=== PATIENT | male | born 1960 | race Caucasian/White ===

== ENCOUNTER → 2018-02-12 11:53 | Outpatient (CLI) | payer OTHER, SELFPAY ==
--- NOTE | 2018-02-12 11:59 | DI.RAD.S_ITS ---
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 TECHNIQUE: 3 views of the knee were acquired. COMPARISON: None. FINDINGS: Bones: No fractures or dislocations. No suspicious bony lesions. There is minimal medial left knee joint degeneration. Soft tissues: No joint effusion. No suspicious soft tissue calcifications. IMPRESSION: Minimal medial left knee joint degeneration. Dictated by: Martell Dawkins M.D. on 02/12/2018 at 12:50 Approved by: Martell Dawkins M.D. on 02/12/2018 at 12:51
[2018-02-12 14:32] LABS: Alanine Aminotransferase 35 IU/L (21-72); Albumin 4.4 g/dL (3.5-5.0); Albumin Globulin Ratio 1.5 (1.0-2.8); Alkaline Phosphatase 64 U/L (38-126); Aspartate Aminotransferase 22 IU/L (17-59); BUN Creatinine Ratio 12.5 (6-22); Bilirubin Total 0.6 mg/dL (0.2-1.3); Blood Urea Nitrogen 10 mg/dL (9-20); Calcium 8.9 mg/dL (8.4-10.2); Carbon Dioxide 29 mmol/L (22-32); Chloride 100 mmol/L (98-107); Cholesterol 182 mg/dL (140-199); Estimated Glomerular Filt Rate > 60.0 mL/min (>60); Globulin 2.9 g/dL (1.7-4.1); Glucose 88 mg/dL (70-100); HDL Cholesterol 52 mg/dL (40-60); HEMOLYSIS < 15 (0-50); LDL Cholesterol Calculated 106 mg/dL (<100); Potassium 3.9 mmol/L (3.4-5.1); Sodium 141 mmol/L (137-145); Total Protein 7.3 g/dL (6.3-8.2); Triglycerides 120 mg/dL (35-150)
[2018-02-12 14:56] LABS: Prostate Specific Antigen Scrn 1.23 ng/mL (0.1-4.0)
== END ==
PROVIDERS: PCP Family Medicine; Visit Provider Family Medicine
DX: Z13.1 Encounter for screening for diabetes mellitus (principal); Z12.11 Encounter for screening for malignant neoplasm of colon; Z13.220 Encounter for screening for lipoid disorders; Z12.5 Encounter for screening for malignant neoplasm of prostate; M25.662 Stiffness of left knee, not elsewhere classified; M25.862 Other specified joint disorders, left knee
CPT/HCPCS: 36415; 73562; 80053; 80061; G0103

== ENCOUNTER → 2018-02-18 09:54 | Outpatient (CLI) | payer OTHER, SELFPAY ==
[2018-02-21 20:31] LABS: Fecal Immunochemical Test DETECTED
== END ==
PROVIDERS: PCP Family Medicine; Visit Provider Family Medicine
DX: Z12.11 Encounter for screening for malignant neoplasm of colon (principal)
CPT/HCPCS: 82274

== ENCOUNTER 2018-08-04 06:35 | Day surgery (SDC) | payer OTHER, SELFPAY ==
--- NOTE | 2018-08-04 | PATH_ITS ---
[facility] Accession Number: [id number] . 01 Material submitted: . PART A: COLON BIOPSY AT 20CM PART B: COLON BIOPSY AT 70CM PART C: BIOPSY ASCENDING COLON . 02 Diagnosis: A. Colon at 20 cm, Biopsy: Fragments of hyperplastic polyp. . B. Colon at 70 cm, Biopsy: Fragments of serrated polyp, favor sessile serrated adenoma. . C. Ascending Colon, Biopsy: Fragments of tubular adenoma. MRV/08/05/2018 . 02 Electronically signed: . Tomas Merrill MD, PhD, Pathologist NPI- [id number] . 01 Gross description: . Received three formalin-filled containers, each labeled with the patient's name: . A. In a container labeled colon at 20 cm, are multiple less than 0.1 cm to 0.5 cm portions of tissue, which are filtered, wrapped, and entirely submitted in cassette A. B. In a container labeled colon at 70 cm, are four less than 0.1 cm to 0.3 cm portions of tissue, entirely submitted in cassette B. C. In a container labeled ascending colon, are two 0.2-0.3 cm portions of tissue, entirely submitted in cassette C. ([id number]) /FRR . 02 Pathologist provided ICD-10: D12.2 . 02 CPT . 144804, 608701, [id number] Performed at: 01 [facility] [address] [id number] MD Sami Johnson MD Phone: [phone] Performed at: 02 [facility] [address] [place] [id number] MD Aaliyah Marks MD Phone: [phone]
[2018-08-04 07:25] VITALS: BP 129/94; PULSE 87; RESP 16; TEMP 36.8; O2SAT 96; BMI 29.5
[2018-08-04] MEDS: SODIUM CHLORIDE 0.9% 1,000 ML 200 ML IV (07:25)
--- NOTE | 2018-08-04 08:15 | PM.HP.1 ---
History of Present Illness Date Patient Seen: 08/04/18 Time Patient Seen: 08:15 Chief complaint: [id number] SCREENING COLONOSCOPY Narrative: The patient is a gentleman here for screening colonoscopy. This is his 1st exam. He had a positive fit test. No family history of colon cancer. Patient History Surgical History S/P carpal tunnel release (Acute) Family & Social History Family History: Reviewed 08/04/18 by Cortez Avendaño MD Social History: household members spouse,children Tobacco & Substance use: Smoking Status Never smoker alcohol intake current Meds Home Medications Medication Instructions Recorded Confirmed Type ibuprofen 200 mg capsule 200 mg PO Q4-6H PRN 02/04/18 08/04/18 History Allergies Allergy/AdvReac Type Severity Reaction Status Date / Time No Known Drug Allergies Allergy Verified 08/04/18 07:33 Review of Systems Review of Systems All systems reviewed & are unremarkable except as noted in HPI and below Exam Vital Signs (past 8 hours): - 08/04/18 07:25 Temperature 98.2 F Pulse Rate 87 Respiratory Rate 16 Blood Pressure 129/94 H Pulse Oximetry 96 Oxygen Delivery Method Room Air Narrative Exam Narrative: Operative gentleman no apparent distress. Eyes are nonicteric. Lungs are clear to auscultation no rales or rhonchi. Heart regular rate rhythm without murmur or gallop. Abdomen is soft nontender protuberant without masses. No hernias appreciated. Alert oriented x3. Assessment & Plan Plan: Assessment/Plan Narrative: Patient with a positive fit test by history for screening colonoscopy. I have discussed the procedure and the rationale with the patient including risks of bleeding, perforation which would necessitate a major operation, failure to find remove all lesions and the potential to tattoo. They appeared to understand and wished to proceed.
--- NOTE | 2018-08-04 08:17 | PM.PREOP ---
Pre-operative Note Interval Note Pre-op Check: Yes History & Physical exam performed today by Physician Changes: No ASA Class (for procedural sedation): I
[2018-08-04] MEDS: MIDAZOLAM 5 MG/5 ML VIAL IV (08:51)
[2018-08-04] MEDS: fentaNYL 250 MCG/5 ML INJ IV (08:53)
--- NOTE | 2018-08-04 09:05 | PM.OP.ENDO ---
Operative Date/Time/Diagnoses Date of procedure: 08/04/18 Time of procedure: 09:05 Pre-op diagnosis: Positive fit test. Post-op diagnosis: same (Multiple polyps. Diverticulosis principle leave the sigmoid colon) Procedure & Clinicians Study performed: Colonoscopy with cold biopsy and hot snare polypectomy Same procedure as scheduled: Yes Indications: Positive fit test Surgeon: Cortez Avendaño Procedure Notes SCOAP/Timeout: Performed Procedure in detail: The patient was placed in the left lateral decubitus position and underwent IV sedation directed by the surgeon consisting of fentanyl and Versed. Digital exam was unremarkable. His prostate is normal in size without masses.. The scope was inserted and advanced through the rectum into the sigmoid, descending, transverse, and ascending colon. Numerous diverticula were seen in the sigmoid colon and a few scattered elsewhere. There were also 2 small polyps removed, 1 at 20 cm and 1 at 70 cm. The cecum was reached identified by the ileocecal valve and the appendiceal opening. The scope was gradually brought out. Additional Polyps were found at the ascending colon, at 70 cm, and a larger 1 at 20 cm. The largest at 20 cm was snared and removed. The scope ultimately was retroflexed in the rectum. The appearance was normal except for a small hemorrhoid without ulceration. The scope was removed and the patient tolerated the procedure well Scope withdrawal time: 13 min Sedation minutes: 32 Findings: diverticulosis, polyp (Multiple. All under a cm.) and possible cancer Specimen(s): other (Polyps) Complications: none Recommendations: Colonscopy in 5 years Follow up: as needed Disposition: PACU
[2018-08-04 09:09] VITALS: BP 112/79; PULSE 71; RESP 15; TEMP 36.3; O2SAT 94
[2018-08-04 09:14] VITALS: BP 101/74; PULSE 62; RESP 14; O2SAT 93
[2018-08-04 09:19] VITALS: BP 121/81; PULSE 72; RESP 14; TEMP 36.5; O2SAT 94
[2018-08-04 09:35] VITALS: BP 119/90; PULSE 72; RESP 16; TEMP 36.6; O2SAT 94
== END 2018-08-04 09:43 | disposition home or self-care (01) ==
LOC: ENDO 06:35
PROVIDERS: PCP Family Medicine; Visit Provider Surgery
PROC: 0DJD8ZZ Inspection of Lower Intestinal Tract, Via Natural or Artificial Opening Endoscopic (ICD-10-PCS; CPT 45378; principal; 2018-08-04 07:45)
DX: D12.2 Benign neoplasm of ascending colon (principal); K57.30 Diverticulosis of large intestine without perforation or abscess without bleeding
CPT/HCPCS: 45385; 45380; 99152; 99153; J2250; J3010

== ENCOUNTER → 2018-10-16 09:18 | Outpatient (CLI) | payer OTHER, SELFPAY | PROVIDERS: PCP Family Medicine; Visit Provider Orthopaedic Surgery Foot and Ankle Surgery | DX: M23.92 Unspecified internal derangement of left knee (principal); M23.42 Loose body in knee, left knee | CPT/HCPCS: 93005 ==

== ENCOUNTER 2019-08-17 14:44 | Day surgery (SDC) | payer OTHER, SELFPAY ==
[2019-08-13 08:13] VITALS: BMI 32.5
[2019-08-17] VITALS (8 sets, daily range): BP systolic 121–146; BP diastolic 78–93; PULSE 52–63; RESP 14–18; TEMP 36.1–36.4; O2SAT 91–97; BMI 32.5
[2019-08-17] MEDS: LACTATED RINGERS 1,000 ML 100 ML IV (15:38)
--- NOTE | 2019-08-17 17:07 | PM.PREOP ---
Pre-operative Note Interval Note History & Physical reviewed/Exam performed by Physician: Yes Changes to H&P: No
[2019-08-17] MEDS: CEFAZOLIN 2 GM/100 ML FROZ.PIGGY IV (17:12)
--- NOTE | 2019-08-17 17:26 | SUR.OPER ---
Supine on padded OR bed, head on pillow, arms secured on padded arm boards at <90 degrees abduction, legs uncrossed, safety belt at thigh, tape over blanket over lower legs.
[2019-08-17] MEDS: BUPIVACAINE 0.5% (PF) VIAL 30 ML INJ (17:34)
[2019-08-17] MEDS: ONDANSETRON 4 MG/2 ML INJ IV (18:17)
[2019-08-17] MEDS: fentaNYL 100 MCG/2 ML INJ IV (18:28)
[2019-08-17] MEDS: HYDROCODONE/ACET 5/325 TABLET 1 TAB PO (18:33)
--- NOTE | 2019-08-17 18:33 | PM.OP.1 ---
Operative Date/Time/Diagnoses Date of procedure: 08/17/19 Time of procedure: 18:09 Pre-op diagnosis: Umbilical hernia reducible Post-op diagnosis: same Procedure & Clinicians Procedure: Repair with underlay of mesh placed in the preperitoneal space Same procedure as scheduled: Yes Indications: Symptomatic hernia with attenuated skin over it Surgeon: Cortez Avendaño Click Yes if Unassisted: Yes Anesthesia Type: General Operative Notes Findings: Small defect containing preperitoneal fat Closure Type: primary Specimen(s): none sent Prosthetic devices, grafts, tissues, transplants, or devices: 1.7 in diameter circular Atrium mesh Estimated Blood Loss (mL): 10 Blood products transfused: none Procedure in detail: The patient is placed supine on the operating table underwent general LMA anesthesia. He was prepped and draped in the usual fashion a curvilinear incision was made in the infraumbilical fold and carried through the subcu fat to the level the fascia. The fascial edge was cleared of tissue and the contents of the hernia which was preperitoneal fat reduced. The fascial edge was cleared of tissue and I dissected preperitoneal fat off the abdominal wall underneath the fascial defect. This allowed me to place a 1.7 in diameter mesh the fascia was closed with [id number] 1. Tycron I incorporated the tails of the mesh into the closure. The skin was quite attenuated and violaceous and I excise that segment. The subcu was closed with 3 0 Vicryl. The skin was closed running 4 0 Vicryl subcuticular stitch and Steri-Strips. Dressing was applied the patient was awakened extubated taken recovery room good condition Complications: none Post-operative Condition: stable Disposition: PACU
== END 2019-08-17 19:12 | disposition home or self-care (01) ==
PROVIDERS: PCP Family Medicine; Visit Provider Specialist
PROC: (CPT 49585; principal; 2019-08-17 15:45)
DX: K42.9 Umbilical hernia without obstruction or gangrene (principal)
CPT/HCPCS: 49585; C1781; J0690; J1100; J1885; J2250; J2405; J2704; J3010

== ENCOUNTER → 2020-11-23 14:59 | Outpatient (CLI) | payer OTHER, SELFPAY ==
[2020-11-23] MEDS: COVID-19 VACC #1, MRNA(MOD) 100 MCG/0.5 ML VIAL IM (15:16)
== END ==
PROVIDERS: PCP Family Medicine; Visit Provider Internal Medicine
DX: Z23 Encounter for immunization (principal)
CPT/HCPCS: 0011A; 91301

== ENCOUNTER → 2020-12-21 14:34 | Outpatient (CLI) | payer OTHER, SELFPAY ==
[2020-12-21] MEDS: COVID-19 VACC #2, MRNA(MOD) 100 MCG/0.5 ML VIAL IM (14:41)
== END ==
PROVIDERS: PCP Family Medicine; Visit Provider Internal Medicine
DX: Z23 Encounter for immunization (principal)
CPT/HCPCS: 0012A; 91301

== ENCOUNTER → 2022-01-30 11:01 | Outpatient (CLI) | payer OTHER, SELFPAY ==
[2022-01-30 11:29] LABS: Add Manual Diff / Slide Review NO; Basophils Absolute Auto 0 /uL (0-100); Eosinophils Absolute Auto 100 /uL (0-450); Eosinophils Percent Auto 2.8 % (2-4); Hematocrit 41.3 % (41-53); Hemoglobin 14.2 g/dL (13.5-17.5); Lymphocytes Absolute Auto 1500 /uL (1100-4500); Lymphocytes Percent Auto 31.1 % (25-40); Mean Corpuscular HGB Conc 34.3 % (30-36); Mean Corpuscular Hemoglobin 32.7 PG (26-34); Mean Corpuscular Volume 95.2 fL (80-100); Monocytes Absolute Auto 400 /uL (0-900); Monocytes Percent Auto 7.3 % (3-14); Neutrophils Absolute Auto 2900 /uL (1500-7000); Neutrophils Percent Auto 57.8 % (50-75); Platelet Count 217 X10^3/uL (150-400); Red Blood Cell Count 4.34 X10^6/uL (4.5-5.9)
[2022-01-30 11:47] LABS: Alanine Aminotransferase 27 IU/L (<50); Albumin 4.7 g/dL (3.5-5.0); Albumin Globulin Ratio 1.8 (1.0-2.8); Alkaline Phosphatase 73 U/L (38-126); Aspartate Aminotransferase 29 IU/L (17-59); BUN Creatinine Ratio 15.6 (6-22); Bilirubin Total 0.5 mg/dL (0.2-1.3); Blood Urea Nitrogen 14 mg/dL (9-20); Calcium 9.1 mg/dL (8.4-10.2); Carbon Dioxide 30 mmol/L (22-32); Chloride 102 mmol/L (98-107); Cholesterol 227 mg/dL (140-199); Estimated Glomerular Filt Rate > 60 mL/min (>60); Globulin 2.6 g/dL (1.7-4.1); Glucose 108 mg/dL (80-110); HDL Cholesterol 81 mg/dL (40-60); HEMOLYSIS < 15 (0-50); LDL Cholesterol Calculated 126 mg/dL (<100); Potassium 5.1 mmol/L (3.4-5.1); Sodium 141 mmol/L (137-145); Total Protein 7.3 g/dL (6.3-8.2); Triglycerides 100 mg/dL (35-150)
[2022-01-30 12:14] LABS: Prostate Specific Antigen Scrn 1.34 ng/mL (0.1-4.0)
== END ==
PROVIDERS: PCP Family Medicine; Referring Provider Family Medicine; Visit Provider Family Medicine
DX: I10 Essential (primary) hypertension (principal); Z12.5 Encounter for screening for malignant neoplasm of prostate
CPT/HCPCS: 36415; 80053; 80061; 85025; G0103

== ENCOUNTER → 2022-07-06 17:04 | Outpatient (CLI) | payer OTHER, SELFPAY ==
--- NOTE | 2022-07-06 17:05 | DI.MRI.S_ITS ---
PROCEDURE: MR HIP RT WO CON INDICATIONS: UNILATERAL PRIMARY OSTEOPOROSIS,RT HIP TECHNIQUE: Noncontrast coronal T1 spin echo and STIR through the bony pelvis. Coronal and axial T2 fast spin echo with fat saturation, sagittal T1 spin echo, and oblique axial T2 fast spin echo with fat saturation through the hip. COMPARISON: [facility], CR, XR PELVIS WITH BILATERAL LATERAL HIPS, 05/02/2022, 16:04. FINDINGS: Image quality: Excellent. Bones and joints: There is linear subchondral low T1 signal intensity traversing the superior aspect of the right femoral head with minimal overlying subchondral collapse. Moderate surrounding ill-defined STIR signal elevation within the femoral head and neck is present. Moderate periarticular osteophyte formation at the right hip joint. The visualized lower lumbar spine appears normally aligned. Moderate right hip joint effusion is present. Tendons and ligaments: The gluteus medius and minimus tendons appear intact, without associated muscle atrophy. The nearby proximal iliotibial band also appears intact. The iliopsoas tendon appears intact, without adjacent bursal fluid collections or evidence for impingement syndrome. The origin of the hamstring tendon is intact at the ischial tuberosity, as well as the associated sacrotuberous ligament. The straight and reflected heads of the rectus femoris muscle origin appear intact, as well as the conjoint tendon. The ligamentum teres appears intact where visualized. Labrum and cartilage: Diffuse right hip labral tearing is present. Cartilage surface of the femoral head appears of normal thickness. The alpha angle of the femur is within normal limits at less than 55 degrees. Soft tissues: Visualized muscles demonstrate normal bulk and internal signal. Quadratus femoris muscle demonstrates no internal edema to suggest ischiofemoral impingement. The proximal sciatic neurovascular bundle appears normal adjacent to the hamstring tendons. No free pelvic fluid. Bladder wall thickness is normal. Genitourinary structures and bowel loops appear normal where visualized. IMPRESSION: 1. 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 2. Right hip osteoarthritis with degenerative hip labral tearing. Dictated by: Billy Alejandro M.D. on 07/09/2022 at 8:57 Approved by: Billy Alejandro M.D. on 07/09/2022 at 9:01
== END ==
PROVIDERS: PCP Family Medicine; Referring Provider Orthopaedic Surgery; Visit Provider Orthopaedic Surgery
DX: M16.11 Unilateral primary osteoarthritis, right hip (principal); S73.101A Unspecified sprain of right hip, initial encounter
CPT/HCPCS: 73721

== ENCOUNTER → 2022-07-26 09:13 | Outpatient (CLI) | payer OTHER, SELFPAY ==
[2022-07-26 10:57] LABS: Add Manual Diff / Slide Review NO; Basophils Absolute Auto 0 /uL (0-100); Basophils Percent Auto 0.7 % (0-2); Eosinophils Absolute Auto 100 /uL (0-450); Eosinophils Percent Auto 2.6 % (2-4); Hematocrit 39.6 % (41-53); Hemoglobin 13.7 g/dL (13.5-17.5); Lymphocytes Absolute Auto 1400 /uL (1100-4500); Lymphocytes Percent Auto 32.6 % (25-40); Mean Corpuscular HGB Conc 34.6 % (30-36); Mean Corpuscular Hemoglobin 32.9 PG (26-34); Mean Corpuscular Volume 95.1 fL (80-100); Monocytes Absolute Auto 300 /uL (0-900); Monocytes Percent Auto 7.9 % (3-14); Neutrophils Absolute Auto 2400 /uL (1500-7000); Neutrophils Percent Auto 56.2 % (50-75); Platelet Count 235 X10^3/uL (150-400); Red Blood Cell Count 4.17 X10^6/uL (4.5-5.9); Red Cell Distribution Width 12.9 % (11.6-14.8); White Blood Cell Count 4.3 X10^3/uL (4.5-11.0)
[2022-07-26 11:10] LABS: BUN Creatinine Ratio 12.7 (6-22); Blood Urea Nitrogen 8 mg/dL (9-20); Calcium 9.2 mg/dL (8.4-10.2); Carbon Dioxide 21 mmol/L (22-32); Chloride 99 mmol/L (98-107); Estimated Glomerular Filt Rate > 60 mL/min (>60); Glucose 94 mg/dL (80-110); HEMOLYSIS < 15 (0-50); Potassium 4.5 mmol/L (3.4-5.1); Sodium 134 mmol/L (137-145)
[2022-07-26 11:51] LABS: Appearance Urine UA CLEAR; Bilirubin Urine UA NEGATIVE (NEGATIVE); Color Urine UA YELLOW; Glucose Urine UA NEGATIVE (Negative); Ketones Urine UA TRACE (NEGATIVE); Leukocyte Esterase Urine UA NEGATIVE (NEGATIVE); Nitrite Urine UA NEGATIVE (Negative); Occult Blood Urine UA NEGATIVE (Negative); Protein Urine UA NEGATIVE (Negative); Urobilinogen Urine UA 0.2 E.U./dL (0.2); pH Urine UA 6.5 (4.5-8.0)
[2022-07-26 12:06] LABS: Hemoglobin A1C% w Est Avg Glu 5.4 % (4.0-6.0)
[2022-07-26 12:37] LABS: Bacteria Urine None Seen; Culture Indicated Urine Cult Not Indicated; RBC Urine 0-1/HPF (0-5/HPF); Squamous Epithelial Cell Urine None Seen (0-5/HPF); WBC Urine None Seen (0-5/HPF)
== END ==
PROVIDERS: PCP Family Medicine; Referring Provider Orthopaedic Surgery; Visit Provider Orthopaedic Surgery
DX: Z01.818 Encounter for other preprocedural examination (principal); Z01.812 Encounter for preprocedural laboratory examination; R73.9 Hyperglycemia, unspecified; N39.0 Urinary tract infection, site not specified
CPT/HCPCS: 36415; 80048; 81001; 83036; 85025; 93005; 93010

== ENCOUNTER → 2022-08-13 10:33 | Outpatient (CLI) | payer OTHER, SELFPAY ==
[2022-08-13 13:17] LABS: COVID19 -Nasal RAPID Negative (Negative)
== END ==
PROVIDERS: PCP Family Medicine; Referring Provider Orthopaedic Surgery; Visit Provider Orthopaedic Surgery
DX: Z20.822 Contact with and (suspected) exposure to COVID-19 (principal)
CPT/HCPCS: 87635; C9803

== ENCOUNTER 2022-08-14 06:15 | Day surgery (SDC) | payer OTHER, SELFPAY ==
[2022-08-07 09:49] VITALS: BMI 28.8
[2022-08-14] VITALS (16 sets, daily range): BP systolic 110–150; BP diastolic 66–95; PULSE 66–81; RESP 13–68; TEMP 35.9–37.5; O2SAT 90–97; BMI 29.5
--- NOTE | 2022-08-14 | DI.RAD.S_ITS ---
PROCEDURE: XR HIP W PEL IF DONE RT 2V INDICATIONS: RIGHT SATHISH TECHNIQUE: 4 intraoperative fluoroscopic images of right hip were acquired. COMPARISON: None. FINDINGS: Intraoperative fluoroscopic images of right hip shows right total hip arthroplasty in progress. Right hip alignment is anatomic. IMPRESSION: Fluoro guidance was provided intraoperatively for right total hip arthroplasty. Dictated by: Anthony Christianson M.D. on 08/14/2022 at 11:06 Approved by: Anthony Christianson M.D. on 08/14/2022 at 11:07
--- NOTE | 2022-08-14 06:00 | DI.RAD.S_ITS ---
PROCEDURE: XR HIP W PEL IF DONE RT 2V INDICATIONS: SATHISH, anterior TECHNIQUE: AP pelvis and lateral view of the right hip acquired. COMPARISON: [facility], CR, XR HIP W PEL IF DONE RT 2V, 08/14/2022, 10:35. FINDINGS: Bones: Patient is status post right hip arthroplasty, with hardware components in expected positions. The hip joint appears congruent. The visualized bony structures appear intact. Soft tissues: Overlying postoperative changes are noted. No suspicious soft tissue densities. IMPRESSION: Postop changes from right total hip arthroplasty with anatomic right hip alignment. Dictated by: Anthony Christianson M.D. on 08/14/2022 at 11:37 Approved by: Anthony Christianson M.D. on 08/14/2022 at 11:37
[2022-08-14] MEDS: ACETAMINOPHEN 325 MG TABLET 975 MG PO (07:07)
[2022-08-14] MEDS: CELECOXIB 200 MG CAPSULE PO ×2 (07:07)
[2022-08-14] MEDS: PREGABALIN 75 MG CAPSULE PO (07:07)
[2022-08-14] MEDS: LACTATED RINGERS 1,000 ML 42 ML IV (07:08)
[2022-08-14] MEDS: VANCOMYCIN 1,000 MG/200 ML PIGGYBACK 200 MG IV (07:11)
--- NOTE | 2022-08-14 07:40 | PM.PREOP ---
Pre-operative Note COVID-19 COVID-19 status: Negative Interval Note History & Physical reviewed/Exam performed by Physician: Yes Changes to H&P: No
--- NOTE | 2022-08-14 07:40 | PM.OP.1 ---
Operative Date/Time/Diagnoses Date of procedure: 08/14/22 Time of procedure: 08:00 Pre-op diagnosis: right hip OA, mild AVN Post-op diagnosis: same Procedure & Clinicians Procedure: Right total hip arthroplasty anterior approach Same procedure as scheduled: Yes Indications: The patient has had progressively worsening right hip pain with radiographic changes consistent with arthritis. Non-operative management has failed and the patient has requested total hip replacement. The risks, benefits and alternatives to surgery were discussed with the patient prior to proceeding. Risks discussed included, but were not limited to, failure to relieve pain, leg length discrepancy, dislocation, stiffness, infection, nerve damage, deep venous thrombosis, pulmonary embolism, stroke, coma, heart attack, permanent paralysis and , as well as the potential need for eventual revision of the prosthetic. Surgeon: Madeline Peguero Chicken Cleaner: Perlita Mendiola Anesthesia Type: General and Spinal Operative Notes Findings: Severe right hip osteoarthritis Closure Type: primary Specimen(s): none sent Prosthetic devices, grafts, tissues, transplants, or devices: Peguero and Nephew 52 mm R3 cup, neutral poly liner,one 6.5 mm screw, size 7 high offset anthology a, 36 x -3 Oxinium femoral head Estimated Blood Loss (mL): 250 Blood products transfused: none Procedure in detail: The patient was brought to the operating room. Patient was carefully positioned in the supine position. Time-out was performed and antibiotics were given. Anesthesia was induced. He was positioned in the on the table in order to allow hyperextension of the hip. The right lower extremity was prepped and draped in a standard sterile fashion. An anterior right hip incision was made 1 fingerbreadth lateral to the anterior superior iliac spine and extended distally towards the greater trochanter. Dissection was carried out through skin and subcutaneous tissues. Superficial hemostasis was achieved. The fascia over the tensor fascia kamari was defined and incised with a knife. Two Allis clamps were used to grasp the fascia. Tensor fascia kamari was retracted laterally. A gelpi retractor was placed. Dissection was carried out down along the neck. The circumflex vessels were carefully identified and cauterized with the Aqua Mantis. There was good visualization of the femoral neck. A Cobra was placed superior to the neck and the gluteus fibers were carefully stripped from that superior aspect of the capsule. A 2nd retractor was placed along the inferior aspect of the neck. The rectus insertion along the capsule was partially released. A 3rd retractor that was then gently placed over the rim of the acetabulum under the rectus. Capsule was carefully incised and released from the intertrochanteric line circumferentially superior to the mid sagittal line and inferiorly to the mid sagittal line until the lesser trochanter was palpable. A tag stitch was placed both in the superior and inferior limb of the capsular insertion. Along the acetabulum capsule was also released up to the mid sagittal 12:00 position. A portion of the labrum was resected. A saw was used to perform an osteotomy at the level of the intertrochanteric line and the junction of the superior femoral neck leaving approximately 1 finger breath of residual inferior neck above the lesser trochanter. A 2nd cut was made along the femoral neck at the base of the head and a napkin ring of neck was removed. Corkscrew was placed in the femoral head and the head was removed without difficulty. Retractors were then repositioned around the acetabulum. Residual labrum was resected and additional osteophytes were removed. A reamer that was 4 mm below the templated size was placed by hand in the acetabulum and it was reamed to centralize the acetabulum. It was then reamed up to 2 under the templated size and fluoroscopy was brought in to confirm the position of the reaming and depth of reaming. I reamed 1 under the anticipated size. A trial cup was placed and noted that it was appropriately sized and fluoroscopy confirmed position and depth. The component was open and inserted without difficulty fluoroscopic imaging was used to confirm that the cup had been adequately seated and was well positioned. It was further stabilized with a single screw. Neutral poly liner was placed. The cup was tested and noted to be stable. Attention was then directed to the femur. The femur was gently hyperextended additional capsular release was performed as needed in order to allow adequate visualization of the proximal femur with elevation of the femur. Patient was placed in a hyperextended slightly adducted position with maximum external rotation. Box osteotome was used to check for any residual neck as well as sclerotic bone along the trochanter. [place] pepper was placed in the femur. Additional broaching was performed. Canal finder was used to determine the alignment of the canal and position. Size 1 broach was placed. The canal was then appropriately broached up to the templated size as long as there was adequate stability of the broach and serial advancement of the broach without excessive impingement. Specific attention was directed at avoiding varus attempting to direct the distal aspect of the broach more anteriorly and avoiding excessive anteversion. Trial reduction showed acceptable range of motion, good stability, no posterior impingement, pentecostal of leg length and appropriate lateral shuck. I also hyperflexed the hip and checked that there was no impingement anteriorly and there was good stability with flexion, adduction and internal rotation. Marcaine and Exparel were injected. The stem was placed without difficulty. Repeat trial reduction and x-ray showed acceptable overall position, length, and no evidence of the femoral fracture. Final head was placed. Wound was meticulously irrigated with normal saline. The hip was reduced and additional Exparel and Marcaine were injected. The capsule was closed with interrupted nonabsorbable sutures. The fascia of the tensor was closed with interrupted and running Vicryl. No drain was placed. Any tensor fascia kamari muscle that appeared to be contused or injured which was a minimal amount was carefully resected. Capsule around the tensor was injected with Exparel and Marcaine. The skin was closed with barbed stitches for the subcutaneous tissue and skin. We also used surgical glue. The wound was dressed sterilely. Patient was transferred to recovery room in satisfactory condition. Complications: none Post-operative Condition: stable Disposition: Acute Care Plan for aftercare: The patient will be maintained on a standard total hip replacement protocol with weight bearing as tolerated and anterior hip precautions. The patient will receive Aspirin and sequential compression devices for DVT prophylaxis. The patient will be discharged home when safe for the home environment.
[2022-08-14] MEDS: CEFAZOLIN 2 GM/100 ML PREMIX 100 ML IV ×2 (08:10→15:25)
[2022-08-14] MEDS: TRANEXAMIC ACID 1,000 MG VIAL 2000 MG INJ ×2 (08:25→10:23)
--- NOTE | 2022-08-14 08:36 | SUR.OPER ---
Supine on padded [place] table with bilateral legs secured in padded positioning boots and suspended in positioning spars, operative leg in traction per surgeon. Head on one pillow. Arm on non-operative side secured on padded armboard <90 degrees abduction. Arm on operative side padded and resting across chest then secured with tape over sheet. Padded perineal post in place per surgeon.
[2022-08-14] MEDS: BUPIVACAINE 0.25% (PF) 60 ML, EPINEPHrine 0.3 MG INJ (08:52)
[2022-08-14] MEDS: BUPIVACAINE LIPOSOME 266 MG/20 ML VIAL INJ (08:52)
[2022-08-14] MEDS: HYDROMORPHONE 2 MG TABLET PO (11:31)
[2022-08-14] MEDS: hydrOXYzine pamoate 25 MG CAPSULE PO (11:33)
[2022-08-14] MEDS: IBUPROFEN 400 MG TABLET PO ×2 (12:54→18:20)
[2022-08-14] MEDS: ONDANSETRON 4 MG/2 ML INJ IV (12:55)
[2022-08-14] MEDS: LACTATED RINGERS 1,000 ML 125 ML IV ×2 (12:55→22:03)
--- NOTE | 2022-08-14 15:00 | PT.IIE ---
Current Diagnoses Unilateral primary osteoarthritis, right hip (08/14/22) Idiopathic aseptic necrosis of right femur (08/14/22) Surgery Performed Operation Date: 08/14/22 07:45 Actual Procedures p Total Hip Arthroplasty/Anterior Approach(Right) - Madeline Peguero MD Surgical History (Last Updated 08/07/22 @ 10:08 by Ryann Tipton, RN) Hx of appendectomy (03/2022) Hx of arthroscopy of left knee (~2019) Hx of umbilical hernia repair (08/17/19) S/P carpal tunnel release Medical History (Last Updated 08/07/22 @ 10:09 by Ryann Tipton RN) BMI 32.0-32.9,adult Hx of tear of meniscus of knee joint Osteoarthritis Pure hypercholesterolemia Screening for prostate cancer Physical Therapy Inpatient Evaluation/Re-Eval M1 PT/OT-IP Prior Functional Status Start: 08/14/22 16:30 Freq: NEEDED Status: Active Protocol: Document 08/14/22 15:00 AB (Rec: 08/14/22 16:42 AB [email or web address]) Medical Review Prior Functional Status Medical History Reviewed Yes Communication able to make needs known Mobility and Gait pt stated that he is independent with all mobilities and ambulation without AD but with difficulty due to hip pain and stated h/ o RLE giving out on him. Social History Household Members spouse,children Living Arrangements House Number of Floors (Floors) Two Floors Number of Stairs To Enter/Railing? no steps to enter the house and pt stays on the main level of the house has a downstairs TV room with 4 steps with R post to descend Home Environment Standard Height Toilet,Walk in Shower Home Equipment Front Wheel Walker,Crutches, Raised Toilet Seat w/Armrests, Hand Held Shower,Grab Bars Near Toilet M2 PT-IP Current Condition Start: 08/14/22 16:30 Freq: NEEDED Status: Active Protocol: Document 08/14/22 15:00 AB (Rec: 08/14/22 16:42 AB [email or web address]) Physical Therapy Current Condition Current Condition Evaluation Date 08/14/22 Treatment Diagnosis s/p R SATHISH anterior approach; difficulty in walking Onset Date 08/14/22 M3 PT-IP Subjective Start: 08/14/22 16:30 Freq: NEEDED Status: Active Protocol: Document 08/14/22 15:00 AB (Rec: 08/14/22 16:42 [email or web address]) Subjective Physical Therapy Visit Type Type Initial Evaluation Visit Start Time 15:00 Visit Stop Time 15:50 Total Visit Minutes 50 Number of MANAGER ACCESS Visits 0 Physical Therapy Visit Comments Patient Comments agreeable to do PT Therapy Pain Assessment Pain When Pain Assessed During Mobility Pain Present Pain Present Pain Reported Location Right Hip Intensity 5 Scale Used Numeric (0 - 10) Pain Behaviors Guarding Pain Management Techniques Apply Cold,Distraction, Modification of Treatment,Re- positioning,Timing of Activity with Medications M4 PT-IP Mobility and Gait Start: 08/14/22 16:30 Freq: NEEDED Status: Active Protocol: Document 08/14/22 15:00 AB (Rec: 08/14/22 16:42 [id number]) PT-Bed Mobility Assessment Supine to Sit Supine to Sit Standby Assistance Sit to Supine Sit to Supine Standby Assistance PT-Transfer Assessment Sit to and From Stand Sit to and from Stand Moderate Assistance,1 Person Assistance,Use of Upper Extremities Equipment Transfer Assistive Device Gait Belt,Front Wheeled Walker Orthotic/Prosthetic Devices or Brace: No Comments Mobility Comments spouse in room with pt. educated pt and spouse regarding pt's anterior hip precautions. pt requiring max cues for hip precautions and safety due to slight confusion with difficulty following directions. BP in supine: 136/84. O2 sat at RA : 94% completed supine to sit SBA and max cues. able to sit on EOB SBA. completed sit to stand mod A and max cues and ambulated in room using FWW mod A ~ 40 ft. pt presents with confusion and unable to follow directions for hip precautions. instructed pt to pause and educated on techniques again midway ambulation and able to follow afterwards. pt requested to go back to bed. completed sit to supine SBA and max cues. positioned pt in bed. call light and table placed within reach. BP checked: 138/88 and O2 sat at RA 94%. caregiver training set up at 830 am tomorrow. Gait Assessment Gait Gait Assistance Required: Minimum Assistance,Moderate Assistance Distance (Feet) 40 Able to Maintain Weight Bearing Status Yes During Gait Assistive Devices Assistive Device Gait Belt,Front Wheeled Walker Orthotic/Prosthetic Devices or Brace: No Gait Deviations General Gait Pattern Antalgic,Decreased Stride Length,Decreased Feet Clearance Factors Limiting Gait Function Factors Limiting Gait Function Decreased Activity Tolerance, Decreased Strength,Difficulty Following Directions,Limited Range of Motion,Pain,Poor Balance,Poor Safety Awareness PT-Balance Assessment Sitting Balance and Reactions Static Sitting Balance Ability Good Dynamic Sitting Balance Ability Good Standing Balance and Reactions Static Standing Balance Ability Fair Dynamic Standing Balance Ability Fair Device Used FWW M5 PT-IP Objective Assessments Start: 08/14/22 16:30 Freq: NEEDED Status: Active Protocol: Document 08/14/22 15:00 AB (Rec: 08/14/22 16:42 AB [email or web address]) Orientation Orientation/Cognition Level of Alertness Alert Orientation Name Language Function Ability No Deficits Noted Safety Awareness Decreased Safety Awareness Memory Description Short Term Impaired Comments with confusion Gross Range of Motion Lower Extremity ROM Assessment Within Functional Limits Strength Lower Extremity Strength Assessment Right Impaired Hip 3-/5 Knee 3+/5 Sensation Assessment Sensation Gross Sensation WNL Muscle Tone Muscle Tone WNL Yes M6 PT-IP Treatment Start: 08/14/22 16:30 Freq: NEEDED Status: Active Protocol: Document 08/14/22 15:00 AB (Rec: 08/14/22 16:42 AB [email or web address]) Physical Therapy Treatment Education Education Provided Precautions,Weight Bearing Status,Post-Op Packet,Safety M7 PT-IP Assessment and Plan Start: 08/14/22 16:30 Freq: NEEDED Status: Active Protocol: Document 08/14/22 15:00 AB (Rec: 08/14/22 16:42 AB [email or web address]) PT Summary Assessment and Plan Potential Rehabilitation Potential Fair Status of Condition at Evaluation Evolving Summary Impairments Pain,ROM,Strength,Balance, Coordination,Sensation,Tone, Cognition,Bed Mobility, Transfers,Gait,Activity Tolerance Assessment Summary Pt just had R SATHISH anterior approach this morning and will likley progress during hospital stay. Pt requiring mod A with mobility using FWW and max cues for precautions/ safety. Pt plans to go home and spouse to assist him. caregiver training set up for tomorrow at 830am and will continue to assess progress for safe d/c plan. pt stated that he has outpt PT set up. Goals Bed Mobility Goal Independent Transfer Goal Independent,Front Wheeled Walker Gait Goal Independent,Front Wheel Walker Gait Distance 200 Days to Meet Goals 5 Frequency of Treatment Frequency Of Treatment Twice a Day Treatment Plan Physical Therapy Treatment Plan Bed Mobility Training,Transfer Training,Gait Training, Therapeutic Exercise,Balance Retraining,Post Op Education, Discharge Planning,Hot or Cold Pack,Neuromuscular Re-ed, Coordination Retraining,Manual Therapy Precautions Anterior Hip Precautions No Hip Extension,No Hip External Rotation Weight Bearing Status Weight Bearing Status Weight Bear as Tolerated Allowed Weight Bearing Amount (enter % RLE WBAT or #) (%) Recommendations To Nursing Amount of Assist Needed 1 Person Assist Discharge Recommendations PT Discharge Recommendations Home with Assistance,Home with / Assist Available, Outpatient PT Transportation Needs at Discharge Private Vehicle,Wheelchair/ Cabulance
[2022-08-14] MEDS: OXYCODONE IR 5 MG TABLET PO ×2 (15:25→22:02)
[2022-08-14] MEDS: ACETAMINOPHEN 325 MG TABLET 650 MG PO (18:20)
[2022-08-14] MEDS: DOCUSATE 100 MG CAPSULE PO (22:02)
[2022-08-14] MEDS: ASPIRIN EC 81 MG TABLET PO (22:02)
[2022-08-15] VITALS: BP 139/85; PULSE 72; RESP 18; TEMP 37.4; O2SAT 97
[2022-08-15] MEDS: IBUPROFEN 400 MG TABLET PO ×2 (00:10→06:43)
[2022-08-15] MEDS: CEFAZOLIN 2 GM/100 ML PREMIX 100 ML IV (00:11)
[2022-08-15] MEDS: ACETAMINOPHEN 325 MG TABLET 650 MG PO ×2 (00:11→06:43)
[2022-08-15 04:00] VITALS: BP 118/76; PULSE 64; RESP 19; TEMP 37.1; O2SAT 97
[2022-08-15] MEDS: LACTATED RINGERS 1,000 ML 125 ML IV (06:44)
[2022-08-15 07:24] LABS: Hematocrit 33.6 % (41-53); Hemoglobin 11.7 g/dL (13.5-17.5)
--- NOTE | 2022-08-15 08:40 | PM.DS.1 ---
History of Present Illness History of Present Illness Date Patient Seen: 08/15/22 Time Patient Seen: 08:40 Chief complaint: SATHISH Anterior *OPB* Narrative: Patient is complaining of mild right hip pain this morning, worse when he is actively flexing his hip. His is at bedside. He denies any new numbness or tingling. He has some nausea when he takes oxycodone. Overall he is feeling well would like to be discharged home today. Discharge Providers Provider Discharge Date: 08/15/22 Primary care physician: Ozzie Caba DO Consults: 08/14/22 06:00 Consult to Anesthesiology Routine Comment: Consulting Provider: Anesthesiologist Reason for consultation: Regional block for post operative pain control 08/14/22 11:53 Consult to Discharge Planning Routine Comment: Consult to Physical Therapy Evaluate & Treat Comment: Physician Instructions: post op SATHISH protocol Discharge provider: Perlita Mendiola PA-C Summary Hospital Course Discharge Diagnosis: Right hip OA, mild AVN Hospital Course: Operative Date/Time/Diagnoses Date of procedure: 08/14/22 Time of procedure: 08:00 Procedure & Clinicians Procedure: Right total hip arthroplasty anterior approach Same procedure as scheduled: Yes Indications: The patient has had progressively worsening right hip pain with radiographic changes consistent with arthritis. Non-operative management has failed and the patient has requested total hip replacement. The risks, benefits and alternatives to surgery were discussed with the patient prior to proceeding. Risks discussed included, but were not limited to, failure to relieve pain, leg length discrepancy, dislocation, stiffness, infection, nerve damage, deep venous thrombosis, pulmonary embolism, stroke, coma, heart attack, permanent paralysis and , as well as the potential need for eventual revision of the prosthetic. Surgeon: Madeline Peguero [place] Former Hand: Perlita Mendiola Anesthesia Type: General and Spinal Operative Notes Findings: Severe right hip osteoarthritis Closure Type: primary Specimen(s): none sent Prosthetic devices, grafts, tissues, transplants, or devices: Peguero and Nephew 52 mm R3 cup, neutral poly liner,one 6.5 mm screw, size 7 high offset anthology a, 36 x -3 Oxinium femoral head Estimated Blood Loss (mL): 250 Blood products transfused: none Status at Discharge Cognitive/behavioral status at discharge: at baseline, oriented Functional status at discharge: uses cane/walker Overall status at discharge: patient is progressing back to baseline Exam Vital Signs (past 8 hours): - 08/15/22 04:00 Temperature 98.7 F Pulse Rate 64 Respiratory Rate 19 Blood Pressure 118/76 Pulse Oximetry 97 Oxygen Flow Rate 2 Oxygen Delivery Method Nasal Cannula Oxygen Flow Rate 2 Narrative Exam Narrative: Pleasant 61-year-old male, resting comfortably in bed, no acute distress. His is at bedside. Right hip bandage is clean, dry, intact. There is mild ecchymosis noted on the medial aspect of his groin, no induration or ana pus. Bilateral lower extremity: Motor functions are grossly intact, sensation is grossly intact to light touch, calves are soft and nontender palpation. Objective Labs Result Diagrams: 08/15/22 07:11 Labs: Laboratory Results - last 24 hr 08/15/22 07:11 Hgb 11.7 L Hct 33.6 L PFSH Medical History BMI 32.0-32.9,adult Hx of tear of meniscus of knee joint Osteoarthritis Pure hypercholesterolemia Screening for prostate cancer Surgical History Hx of appendectomy (03/2022) Hx of arthroscopy of left knee (~2019) Hx of umbilical hernia repair (08/17/19) S/P carpal tunnel release Family History Mother Cancer Father Heart disease Social History marital status: household members: spouse and children current occupational exposures/hazards: Yes ([employer]) Smoking Status: Never smoker alcohol intake: current substance use type: does not use Discharge Assessment & Plan Assessment and Plan Assessment: -stable status post right total hip arthroplasty, anterior approach Plan of Treatment: -mobilize with PT. Weightbearing as tolerated with front wheel walker. Maintain anterior hip precautions x6 weeks -continue multimodal pain management, add Vistaril as needed for muscle spasms -aspirin 81 mg twice daily x6 weeks for DVT prophylaxis -DC home today once cleared by PT Discharge Plan Discharge Plan Patient Disposition: Home Discharge orders & Medications Discharge Orders: Discharge (Order); Ordered 08/15/22 Ordered By: Madeline Peguero Prescriptions: New ondansetron 4 mg Tablet,Disintegrating 4 mg PO Q4HR PRN (Reason: Nausea) Qty: 14 0RF oxycodone 5 mg Tablet 5 mg PO Q3HR PRN (Reason: Pain, Moderate (4-6)) Qty: 30 0RF hydroxyzine pamoate [Vistaril] 25 mg capsule 25 mg PO QID PRN (Reason: Muscle spasms/pain/nausea) Qty: 30 0RF aspirin 81 mg Tablet,Delayed Release (Dr/Ec) 81 mg PO BID 42 Days Qty: 84 0RF Rx Instructions: Prevent blood clots docusate sodium 100 mg Capsule 100 mg PO BID PRN (Reason: constipation) Qty: 20 0RF Continued ibuprofen 200 mg Capsule 400 mg PO DAILY PRN (Reason: Pain) acetaminophen 500 mg Tablet 1,000 mg PO DAILY PRN (Reason: Pain) Follow up/Referrals: Madeline Peguero MD [Physician] - As previously scheduled (Follow up w/ Dr Peguero on 08/29/2022 @ 11:00 am at [facility] in [place].) Ozzie Caba DO [Primary Care Provider] - Diet/Activity/Treatments Other treatments: Medications: -Aspirin 81mg twice daily x6 weeks to prevent blood clots. -OTC Tylenol 500 mg 1 tablet every 4 hours as needed for pain/fever. Max 6 tablets per day. -Ibuprofen 400 mg 1 tablet every 4 hours as needed for pain/inflammation. Max 2,400 mg per day. -Oxycodone 5 mg take 1-2 tablets every 4 hours as needed for moderate-severe pain (narcotic pain medication). -Vistaril (hydroxyine) 25mg 1 tab every 4 hours as needed for spasms/pain/nausea. -As needed medications: -Ducolax and /or MiraLax as needed for constipation from narcotic pain medications. -Pepcid AC as needed for stomach upset (usually from aspirin or ibuprofen). Dressing/Wound care: -Keep Aquacell dressing in place until postoperative follow-up office visit. -Okay to shower. Keep wound out of direct water stream. No soaking or submerging until all the scabs fall off (approximately 6 weeks). -No lotions, ointments, or scar creams directly to the incision until the wound is healed (4-6 weeks), -Please call the office if dressing becomes wet, soiled, or saturated. Activities: -Maintain anterior hip precautions x6 weeks. -Weight-bearing as tolerated. Use front wheeled walker, and progress to cane when safe. -Continue with home exercises as directed by your physical therapist. -Elevate ?toes above the nose if you have significant swelling in your lower leg. (A wedge pillow is easiest.) -Ice your incision as needed for pain/inflammation/swelling. Protect your skin with a folded pillowcase. Follow-up: -Follow-up with your surgeon or PA in the office in 10-14 days after surgery. -Follow-up with your surgeon 6 weeks postoperatively. Call the office if you have chest pain, shortness of breath, significant swelling that will not resolve with elevating, fever over 101?, significantly worsening pain, or are concerned you might need to go to the Emergency Room. [facility]: [phone] Skin/Wound/Dressing Care Report to your healthcare provider any signs of infection, such as:: chills, fever, night sweats, unusual drainage and unusual redness Visit Report/Discharge Packet Instructions: DI for Hip Replacement Stand Alone Forms: Surgery Discharge Discharge Data Primary Care Provider: Ozzie Caba Attending Provider: Madeline Peguero VTE Deep Vein Thrombosis/Pulmonary Embolism Present on Admission: No
--- NOTE | 2022-08-15 08:45 | PT.IPTN ---
Current Diagnoses Unilateral primary osteoarthritis, right hip (08/14/22) Idiopathic aseptic necrosis of right femur (08/14/22) Surgery Performed Operation Date: 08/14/22 07:45 Actual Procedures p Total Hip Arthroplasty/Anterior Approach(Right) - Madeline Peguero MD Physical Therapy Treatment Note M2 PT-IP Current Condition Start: 08/14/22 16:30 Freq: NEEDED Status: Discharge Protocol: Document 08/14/22 15:00 AB (Rec: 08/14/22 16:42 AB [email or web address]) Physical Therapy Current Condition Current Condition Evaluation Date 08/14/22 Treatment Diagnosis s/p R SATHISH anterior approach; difficulty in walking Onset Date 08/14/22 M3 PT-IP Subjective Start: 08/14/22 16:30 Freq: NEEDED Status: Discharge Protocol: Document 08/15/22 08:45 AB (Rec: 08/15/22 13:04 AB [email or web address]) Subjective Physical Therapy Visit Type Type Treatment Note Visit Start Time 08:45 Visit Stop Time 09:15 Total Visit Minutes 30 Number of PARTS DELIVERY DRIVER Visits 0 Physical Therapy Visit Comments Patient Comments agreeable to do PT M4 PT-IP Mobility and Gait Start: 08/14/22 16:30 Freq: NEEDED Status: Discharge Protocol: Document 08/15/22 08:45 AB (Rec: 08/15/22 13:04 AB [email or web address]) PT-Bed Mobility Assessment Supine to Sit Supine to Sit Standby Assistance PT-Transfer Assessment Sit to and From Stand Sit to and from Stand Standby Assistance,Contact Guard Assistance,1 Person Assistance,Use of Upper Extremities Equipment Transfer Assistive Device Gait Belt Orthotic/Prosthetic Devices or Brace: No Transfers Transfer Destination Chair Transfer Technique ambulated Transfer Ability Level of Assist Standby Assistance,Contact Guard Assistance,1 Person Assistance,Use of Upper Extremities Comments Mobility Comments pt required cues to recall hip precautions. spouse in room with pt. pt completed supine to sit SBA . able to sit on EOB SBA. caregiver training conducted and educated spouse on how to use safety belt and how to assist pt. spouse was able to put safety belt on pt and assisted pt with sit to stand and ambulation in room ~ 35 ft using FWW SBA to CGA provided by spouse. educated pt on stair climbing. completed sit to stand from chair with spouse assisting and ambulated towards the step . completed up/down platform step using FWW CGA. Pt repeated with spouse assisting and completed safely. pt ambulated back to his room using FWW SBA. positioned on chair. call light and table placed within reach. pt and spouse without further concerns. Gait Assessment Gait Gait Assistance Required: Standby Assistance,Contact Guard Assist Distance (Feet) 35 Able to Maintain Weight Bearing Status Yes During Gait Assistive Devices Assistive Device Gait Belt,Front Wheeled Walker Orthotic/Prosthetic Devices or Brace: No Gait Deviations General Gait Pattern Decreased Stride Length, Decreased Feet Clearance Factors Limiting Gait Function Factors Limiting Gait Function Decreased Activity Tolerance, Decreased Strength,Limited Range of Motion,Poor Balance, Poor Safety Awareness Stair Climbing Assessment Evaluation Level of Assist On Stairs Contact Guard Assistance,1 Person Assistance Devices Stair Climbing Assistive Devices Front Wheel Walker Technique/Endurance Stair Climbing Direction Ascend and Descend Stair Climbing Technique Step to Step Number of Steps Climbed 1 Stair Climbing Set # Repetitions (reps) 2 M5 PT-IP Objective Assessments Start: 08/14/22 16:30 Freq: NEEDED Status: Discharge Protocol: Document 08/14/22 15:00 AB (Rec: 08/14/22 16:42 AB [email or web address]) Orientation Orientation/Cognition Level of Alertness Alert Orientation Name Language Function Ability No Deficits Noted Safety Awareness Decreased Safety Awareness Memory Description Short Term Impaired Comments with confusion Gross Range of Motion Lower Extremity ROM Assessment Within Functional Limits Strength Lower Extremity Strength Assessment Right Impaired Hip 3-/5 Knee 3+/5 Sensation Assessment Sensation Gross Sensation WNL Muscle Tone Muscle Tone WNL Yes M6 PT-IP Treatment Start: 08/14/22 16:30 Freq: NEEDED Status: Discharge Protocol: Document 08/15/22 08:45 AB (Rec: 08/15/22 13:04 [email or web address]) Physical Therapy Treatment Education Education Provided Precautions,Weight Bearing Status,Safety M7 PT-IP Assessment and Plan Start: 08/14/22 16:30 Freq: NEEDED Status: Discharge Protocol: Document 08/15/22 08:45 AB (Rec: 08/15/22 13:04 [email or web address]) PT Summary Assessment and Plan Potential Rehabilitation Potential Good Summary Impairments Pain,ROM,Strength,Balance, Coordination,Sensation,Tone, Cognition,Bed Mobility, Transfers,Gait,Activity Tolerance Progress Towards Goals Slow Progress due to Activity Tolerance Assessment Summary Pt requiring SBA to CGA with mobility. caregiver training conducted and spouse was able to assist pt safely. pt plans to go home with spouse assisting and may go home when medically stable. Goals Bed Mobility Goal Independent Transfer Goal Independent,Front Wheeled Walker Gait Goal Independent,Front Wheel Walker Gait Distance 200 Days to Meet Goals 5 Frequency of Treatment Frequency Of Treatment Twice a Day Treatment Plan Physical Therapy Treatment Plan Bed Mobility Training,Transfer Training,Gait Training, Therapeutic Exercise,Balance Retraining,Post Op Education, Discharge Planning,Hot or Cold Pack,Neuromuscular Re-ed, Coordination Retraining,Manual Therapy Precautions Anterior Hip Precautions No Hip Extension,No Hip External Rotation Weight Bearing Status Weight Bearing Status Weight Bear as Tolerated Allowed Weight Bearing Amount (enter % RLE WBAT or #) (%) Recommendations To Nursing Amount of Assist Needed 1 Person Assist Discharge Recommendations PT Discharge Recommendations Home with Assistance, Outpatient PT Transportation Needs at Discharge Private Vehicle,Wheelchair/ Cabulance
[2022-08-15 08:50] VITALS: BP 114/71; PULSE 60; RESP 16; TEMP 36.8; O2SAT 96
--- NOTE | 2022-08-15 11:34 | PC.NURSE ---
Pt discharged home by private vehicle at 1015, escorted off floor in wheelchair, accompanied by friend and hospital staff. IV removed, discharge teaching provided including new meds and follow up appointments. All questions and concerns addressed. Pt left with all belongings.
--- NOTE | 2022-08-15 15:10 | CM.IDA ---
Initial DCP Assessment Note Pt is a 61 yo male, resident of [place], now POD#1 from : Total Hip Arthroplasty/Anterior Approach(Right) - Madeline Peguero MD PCP: Ozzie Caba Payer: [employer] Reviewed chart, pt discussed in multidisciplinary rounds this morning. Therapy has cleared pt for return home w/family to assist and pt has planned for home, DC order from Ortho has already been initiated this morning. No barriers identified at this time to patient's safe discharge home w/family to assist; close outpatient f/u recommended. HUBER Coburn
== END 2022-08-15 11:36 | disposition home or self-care (01) ==
LOC: OR 06:16 → AC 06:18
PROVIDERS: PCP Family Medicine; Referring Provider Internal Medicine Cardiovascular Disease; Visit Provider Orthopaedic Surgery
PROC: (CPT 27130; principal; 2022-08-14 07:45)
DX: M16.11 Unilateral primary osteoarthritis, right hip (principal); M87.051 Idiopathic aseptic necrosis of right femur
CPT/HCPCS: 27130; 36415; 73502; 76000; 85014; 85018; 97162; 97530; C1776; C9290; J0171; J0690; J1100; J1170; J2250; J2405; J2704; J3010

== ENCOUNTER 2023-02-19 11:44 | Day surgery (SDC) | payer OTHER, SELFPAY ==
[2022-08-14 06:48] VITALS: BMI 29.5
--- NOTE | 2023-02-19 | PATH_ITS ---
[facility] Accession Number: [id number] No. of containers..02 Tissue . 01 Material submitted: . PART A: colon - TRANSVERSE PART B: rectum - RECTUM . 01 Diagnosis: A. Transverse Colon, Polypectomy: Tubular adenoma. . B. Rectum, Polypectomy: Hyperplastic polyp. [facility] 02/26/2023 1320 Local . 01 Electronically signed: . Aaliyah Marks MD, Pathologist NPI- [id number] . 01 Gross description: . Part A: TRANSVERSE: Received in formalin is 1 fragment(s) of huitron, soft tissue measuring 0.5 x 0.5 x 0.2 cm submitted entirely in 1 cassette(s) Part B: RECTUM: Received in formalin is 1 fragment(s) of huitron, soft tissue measuring 0.3 x 0.2 x 0.2 cm submitted entirely in 1 cassette(s) /[facility] 02/22/2023 1523 Local . 01 Pathologist provided ICD-10: D12.3 . 01 CPT . 982391, [id number] Specimen Comment: A courtesy copy of this report has been sent to [phone] Performed at: 01 [facility] [address] [place] [address] [address] [facility], [place], [place] [id number] MD Sami Johnson MD Phone: [phone]
[2023-02-19 12:01] VITALS: BP 139/84; PULSE 66; RESP 17; TEMP 36; O2SAT 97; BMI 31.0
[2023-02-19] MEDS: LACTATED RINGERS 1,000 ML 200 ML IV (12:12)
--- NOTE | 2023-02-19 13:10 | PM.HP.1 ---
History of Present Illness History of Present Illness Date Patient Seen: 02/19/23 Chief complaint: Dx Colonoscopy Narrative: 62-year-old man here for screening colonoscopy. Last scope was 5 years ago and notable for polyps. No family history of intestinal malignancy. No abdominal complaints. [facility] Medical History BMI 32.0-32.9,adult Hx of tear of meniscus of knee joint Osteoarthritis Pure hypercholesterolemia Screening for prostate cancer Surgical History (Updated 02/19/23 @ 12:01 by Devang Borjas RN) Hx of appendectomy (03/2022) Hx of arthroscopy of left knee (~2019) Hx of umbilical hernia repair (08/17/19) S/P carpal tunnel release S/P hip replacement Family History Mother Cancer Father Heart disease Social History marital status: household members: spouse and children current occupational exposures/hazards: Yes ([employer]) Smoking Status: Never smoker alcohol intake: current substance use type: does not use Meds Home Medications and Allergies Home Medications Medication Instructions Recorded Confirmed Type acetaminophen 500 mg tablet 1,000 mg PO DAILY PRN Pain 08/07/22 02/19/23 History Allergies Allergy/AdvReac Type Severity Reaction Status Date / Time No Known Drug Allergies Allergy Verified 08/14/22 14:41 Exam Vital Signs (past 8 hours): - 02/19/23 12:01 Temperature 96.8 F L Pulse Rate 66 Respiratory Rate 17 Blood Pressure 139/84 Pulse Oximetry 97 Oxygen Delivery Method Room Air Oxygen Delivery Method Room Air Narrative Exam Narrative: General adult man alert oriented no acute distress Assessment & Plan Assessment & Plan narrative: The patient requires colorectal screening and colonoscopy is recommended. Technical details were discussed. Risks, benefits, alternatives explained. Risks including but not limited to myocardial infarction, aspiration, bleeding, pain, missed lesion, incomplete examination, need for further radiographic studies, colonic perforation, and need for major abdominal surgery were discussed. All questions were answered to their satisfaction, and they are in agreement with this plan.
[2023-02-19 13:59] VITALS: BP 114/78; PULSE 64; RESP 12; TEMP 36.2; O2SAT 97
--- NOTE | 2023-02-19 14:04 | PM.OP.COLON ---
Operative Date/Time/Diagnoses Date of procedure: 02/19/23 Time of procedure: 14:05 Pre-op diagnosis: Family history of colon cancer Procedure & Clinicians Study performed: Colonoscopy Same procedure as scheduled: Yes Indications: Family history of colon cancer-brother Personal history of colonic polyps Procedure Notes Procedure in detail: The history and physical was performed/updated and the patient is ASA class is 2. The procedure was discussed in detail with the patient. Potential risks complications including infection, bleeding, missed diagnosis, perforation, need for surgery, and were explained. Their questions were answered and informed consent was obtained. Patient was brought to the procedure room and placed standard monitoring equipment. The patient's vital signs were monitored continuously throughout the entire procedure. Prior to starting time-out was performed. The patient was placed in the left lateral recumbent position. Procedural sedation was administered by anesthesia. Examination began with a thorough inspection of the perianal area there was no evidence of fissures, fistulae, external hemorrhoids or cutaneous malignancy. The colonoscopy scope was then placed into the anal canal and was advanced to the cecum, which was identified by the ileocecal valve, the appendiceal orifice and the confluence of the taenia. The scope was then slowly withdrawn examining colon thoroughly in all directions, irrigating it of any residual stool. Within the rectum there were 2, 3 mm polyps removed with biopsy forceps. Within the transverse colon there was a 5 mm polyp removed with biopsy forceps. Extensive sigmoid diverticulosis The patient tolerated the procedure well. They will be discharged once criteria are met. The prep was of good/excellent quality. The withdrawl time was 8 minutes. Specimen(s): other (Rectal and transverse colonic polyps) Impression: Colonic polyps x3 Post-procedure Recommendations: Colonoscopy in 5 years Disposition: same day surgery
[2023-02-19 14:07] VITALS: BP 113/71; PULSE 71; RESP 11; O2SAT 98
[2023-02-19 14:10] VITALS: BP 102/73; BP 111/75; PULSE 66; PULSE 68; RESP 14; RESP 15; TEMP 36.5; O2SAT 98; O2SAT 99
== END 2023-02-19 14:25 | disposition home or self-care (01) ==
PROVIDERS: PCP Family Medicine; Referring Provider Surgery; Visit Provider Surgery
PROC: 0DJD8ZZ Inspection of Lower Intestinal Tract, Via Natural or Artificial Opening Endoscopic (ICD-10-PCS; CPT 45378; principal; 2023-02-19 13:15)
DX: Z12.11 Encounter for screening for malignant neoplasm of colon (principal); Z80.0 Family history of malignant neoplasm of digestive organs; K57.30 Diverticulosis of large intestine without perforation or abscess without bleeding; D12.3 Benign neoplasm of transverse colon; K62.1 Rectal polyp
CPT/HCPCS: 45380; J2704

== ENCOUNTER → 2023-10-02 10:01 | Outpatient (CLI) | payer OTHER, SELFPAY ==
[2023-08-30 09:06] VITALS: BMI 29.5
[2023-10-02 11:19] LABS: Add Manual Diff / Slide Review NO; Basophils Absolute Auto 0 /uL (0-100); Basophils Percent Auto 0.6 % (0-2); Eosinophils Absolute Auto 200 /uL (0-450); Eosinophils Percent Auto 2.9 % (2-4); Hematocrit 41.2 % (41-53); Hemoglobin 14.2 g/dL (13.5-17.5); Lymphocytes Absolute Auto 1300 /uL (1100-4500); Mean Corpuscular HGB Conc 34.4 % (30-36); Mean Corpuscular Volume 95.9 fL (80-100); Monocytes Absolute Auto 400 /uL (0-900); Monocytes Percent Auto 7.8 % (3-14); Neutrophils Absolute Auto 3300 /uL (1500-7000); Neutrophils Percent Auto 62.7 % (50-75); Platelet Count 208 X10^3/uL (150-400); Red Cell Distribution Width 13.4 % (11.6-14.8); White Blood Cell Count 5.2 X10^3/uL (4.5-11.0)
[2023-10-02 11:51] LABS: Alanine Aminotransferase 20 IU/L (<50); Albumin 4.4 g/dL (3.5-5.0); Albumin Globulin Ratio 1.8 (1.0-2.8); Alkaline Phosphatase 57 U/L (38-126); Aspartate Aminotransferase 25 IU/L (17-59); BUN Creatinine Ratio 13.8 (6-22); Blood Urea Nitrogen 12 mg/dL (9-20); Carbon Dioxide 27 mmol/L (22-32); Chloride 98 mmol/L (98-107); Cholesterol 210 mg/dL (140-199); Estimated Glomerular Filt Rate > 60 mL/min (>60); Globulin 2.5 g/dL (1.7-4.1); Glucose 108 mg/dL (80-110); HDL Cholesterol 102 mg/dL (40-60); HEMOLYSIS < 15 (0-50); LDL Cholesterol Calculated 89 mg/dL (<100); Potassium 4.6 mmol/L (3.4-5.1); Sodium 137 mmol/L (137-145); Total Protein 6.9 g/dL (6.3-8.2); Triglycerides 94 mg/dL (35-150)
[2023-10-02 12:13] LABS: Prostate Specific Antigen Scrn 1.83 ng/mL (0.1-4.0)
== END ==
PROVIDERS: PCP Family Medicine; Referring Provider Family Medicine; Visit Provider Family Medicine
DX: Z12.5 Encounter for screening for malignant neoplasm of prostate (principal); Z02.89 Encounter for other administrative examinations; Z68.32 Body mass index [BMI] 32.0-32.9, adult; E78.00 Pure hypercholesterolemia, unspecified
CPT/HCPCS: 36415; 80053; 80061; 85025; G0103

== ENCOUNTER → 2023-12-26 11:30 | Outpatient (CLI) | payer OTHER, SELFPAY ==
[2023-08-30 09:06] VITALS: BMI 29.5
--- NOTE | 2023-12-26 11:31 | DI.RAD.S_ITS ---
PROCEDURE: XR HIP W PEL IF DONE LT 2V INDICATIONS: lt hip pain TECHNIQUE: AP pelvis with lateral view(s) of the left hip(s). COMPARISON: [facility] [place], CR, XR PELVIS WITH LATERAL HIP RIGHT, 08/29/2022, 11:09[facility], CR, XR HIP W PEL IF DONE RT 2V, 08/14/2022, 11:17. FINDINGS: Bones: No fractures or dislocations. Pelvic ring appears intact. No suspicious bony lesions. Right hip arthroplasty is stable. Soft tissues: The visualized bowel gas pattern is normal. No suspicious soft tissue calcifications. IMPRESSION: No acute bony abnormality. Dictated by: Audelia Cadena M.D. on 12/26/2023 at 14:41 Approved by: Audelia Cadena M.D. on 12/26/2023 at 14:45
== END ==
PROVIDERS: PCP Family Medicine; Referring Provider Family Medicine; Visit Provider Family Medicine
DX: M25.552 Pain in left hip (principal); Z96.641 Presence of right artificial hip joint
CPT/HCPCS: 73502

== ENCOUNTER 2024-12-07 10:58 | Emergency (ER) | payer OTHER, SELFPAY ==
[2023-08-30 09:06] VITALS: BMI 29.5
--- NOTE | 2024-12-07 | DI.US.S_ITS ---
PROCEDURE: US SCROTUM INDICATIONS: PAIN TECHNIQUE: Real-time scanning was performed of the scrotum and testicles, with image documentation. Color and pulse Doppler interrogation was performed of both testicles. COMPARISON: None. FINDINGS: Right: Testicle is normal in size at 4.0 x 2.8 x 2.5 cm, and homogenous in echotexture. Epididymis is normal in overall size and morphology. Simple epididymal head cysts, which are benign. Largest measures 0.8 cm. Small hydrocele with no varicocele. Overlying scrotal skin is normal in thickness. Left: Testicle is normal in size at 4.2 x 3.2 x 3.5 cm, and homogeneous in echotexture. Epididymis is normal in overall size and morphology. Large hiatus stool with no varicocele Overlying scrotal skin is normal in thickness. Doppler: Color and pulse Doppler demonstrate normal and symmetric arterial flow in both testicles. IMPRESSION: Small right and large left varicocele. No evidence of infection or torsion. Dictated by: Alexander Arredondo M.D. on 12/07/2024 at 12:01 Approved by: Alexander Arredondo M.D. on 12/07/2024 at 12:02
[2024-12-07 11:03] VITALS: BP 163/79; PULSE 73; RESP 16; TEMP 36.1; O2SAT 96; BMI 29.5
--- NOTE | 2024-12-07 12:05 | ED.MALEGU ---
HPI - Male Genitourinary <Makenna Wheeler PA-C - Last Filed: 12/07/24 12:37> General Chief complaint: Urogenital-Male Stated complaint: Swollen Left Testicle , Sent from PCP Time Seen by Provider: 12/07/24 11:27 Source: patient Mode of arrival: Ambulatory History of Present Illness HPI Narrative: Mr. Jean Is a very pleasant 64-year-old male with a past medical history of orthopedic surgeries who presents to the emergency department for testicular swelling since he woke up this morning. Patient states he was in his normal state of health when he went to bed last night however when he woke up this morning his scrotum was swollen and it felt like he had 1 large tennis ball in his scrotum. There is no pain redness or fevers associated with the swelling. No trauma to the scrotum. No history of any problems with the scrotum. He denies abdominal pain, nausea, vomiting, diarrhea, constipation. No dysuria. He is here with his . Related Data Allergies Allergy/AdvReac Type Severity Reaction Status Date / Time No Known Drug Allergies Allergy Verified 12/26/23 11:23 Review of Systems <Makenna Wheeler PA-C - Last Filed: 12/07/24 12:37> Review of Systems ROS Unobtainable: All systems reviewed & are unremarkable except as noted in HPI and below Patient History <Makenna Wheeler PA-C - Last Filed: 12/07/24 12:37> Medical History Trigger finger Osteoarthritis BMI 32.0-32.9,adult Pure hypercholesterolemia Screening for prostate cancer Hx of tear of meniscus of knee joint Surgical History History of right hip replacement S/P hip replacement Hx of arthroscopy of left knee (~2019) Hx of appendectomy (03/2022) Hx of umbilical hernia repair (08/17/19) S/P carpal tunnel release Family History Mother Cancer Father Heart disease Social History marital status: household members: spouse and children current occupational exposures/hazards: Yes ([employer]) Smoking Status: Never smoker alcohol intake: current substance use type: does not use Smoking Status: Never smoker alcohol intake frequency: a few times a week Exam <Makenna Wheeler PA-C - Last Filed: 12/07/24 12:37> Narrative Exam Narrative: GENERAL: 64 year old patient appears stated age. Well-developed patient, in no acute distress. HEAD: Atraumatic. Normocephalic. EYES: No scleral icterus. No injection or drainage. NECK: Trachea midline. Cervical ROM intact. CARDIOVASCULAR: Regular rate and rhythm. RESPIRATORY: Nonlabored respirations. Speaking in clear, full sentences. Clear to auscultation. Breath sounds equal bilaterally. No wheezes, rales, or rhonchi. GASTROINTESTINAL: Abdomen soft, non-tender, nondistended. Patient gave verbal consent for exam. Normal circumcised penis. Large swelling of the scrotum with no tenderness to palpation of bilateral testes or spermatic cords. No redness, fluctuance or increased warmth. EXTREMITIES: No edema or joint tenderness. BACK: No CVA tenderness. NEURO: AOx3. Clear speech. Moves all 4 extremities appropriately. SKIN: No rash or erythema of visible areas Initial Vital Signs Initial Vital Signs: Vital Signs Temperature 97 F L 12/07/24 11:03 Pulse Rate 73 12/07/24 11:03 Respiratory Rate 16 12/07/24 11:03 Blood Pressure 163/79 H 12/07/24 11:03 Pulse Oximetry 96 12/07/24 11:03 Oxygen Delivery Method Room Air 12/07/24 11:03 <Lucía Buckley DO - Last Filed: 12/11/24 03:23> Initial Vital Signs Initial Vital Signs: Vital Signs Temperature 97 F L 12/07/24 11:03 Pulse Rate 73 12/07/24 11:03 Respiratory Rate 16 12/07/24 11:03 Blood Pressure 163/79 H 12/07/24 11:03 Pulse Oximetry 96 12/07/24 11:03 Oxygen Delivery Method Room Air 12/07/24 11:03 Course <Makenna Wheeler PA-C - Last Filed: 12/07/24 12:37> Vital Signs Vital signs: Vital Signs - 8 hr 12/07/24 11:03 Temperature 97 F L Pulse Rate 73 Respiratory Rate 16 Blood Pressure 163/79 H Pulse Oximetry 96 Oxygen Delivery Method Room Air <Lucía Buckley DO - Last Filed: 12/11/24 03:23> Vital Signs Vital signs: Vital Signs - 8 hr 12/07/24 11:03 Temperature 97 F L Pulse Rate 73 Respiratory Rate 16 Blood Pressure 163/79 H Pulse Oximetry 96 Oxygen Delivery Method Room Air MDM - Male Genitourinary <Makenna Wheeler PA-C - Last Filed: 12/07/24 12:37> Medical Records Attestation: I reviewed the patient's medical records. Lab Data Labs: Urine Dip Bedside Urine Glucose Negative Bedside Urine Bilirubin - Negative Bedside Urine Ketone - Negative Urine Specific [place] 1.010 Bedside Urine Occult Blood - Negative Bedside Urine pH 7.0 Bedside Urine Protein - Negative Bedside Urine Urobilinogen - Negative Bedside Urine Nitrite - Negative Bedside Urine Leukocytes - Negative Esterase MDM Narrative Medical decision making narrative: 64-year-old male with a past medical history of orthopedic surgeries who presents to the emergency department for testicular swelling since he woke up this morning. Differential diagnosis includes but is not limited to hydrocele, varicocele, testicular torsion, José Miguel's gangrene, epididymitis, orchitis, etc. On exam patient is in no acute distress, nontoxic appearing, vital signs appropriate except for mildly elevated blood pressure. His abdomen is soft and nontender. He has diffuse swelling of the scrotum with no palpable mass, no tenderness, no redness or increased warmth. No lower extremity edema. Scrotal ultrasound was obtained in triage and reveals small right hydrocele and large left hydrocele. No evidence of infection or torsion. Initial radiology read reported varicocele however I called and confirmed with Dr. Alexander Arredondo that the read is meant to say hydrocele. UA negative for infection. Discussed case with the attending ED physician Dr. Buckley. At this time patient's symptoms are consistent with ultrasound reading of hydrocele. He has not having any pain, any redness or any signs of infection. Recommended supportive care of supportive underwear, gentle ice, follow up with Urology. We discussed strict ED return precautions and I advised prompt follow up with PCP. Patient verbalized understanding all information and is happy with this plan. He is stable for discharge home. <Lucía Buckley DO - Last Filed: 12/11/24 03:23> Lab Data Labs: Urine Dip Bedside Urine Glucose Negative Bedside Urine Bilirubin - Negative Bedside Urine Ketone - Negative Urine Specific [place] 1.010 Bedside Urine Occult Blood - Negative Bedside Urine pH 7.0 Bedside Urine Protein - Negative Bedside Urine Urobilinogen - Negative Bedside Urine Nitrite - Negative Bedside Urine Leukocytes - Negative Esterase Discharge Plan Departure Patient Disposition: Home Clinical Impression: Hydrocele, left, Hydrocele, right Instructions: DI for Hydrocele-Adult Activity Restrictions/Additional Instructions: Dear Mr. Jean, Today you were evaluated for scrotal swelling. Your ultrasound revealed a large left hydrocele and a small right hydrocele. This is fluid surrounding the testicle. It is important to follow up with Urology for further management of this however at this time there is no emergent surgical needs, Signs of testicular torsion or signs of infection. Please call to schedule an appointment with [facility] at [phone]. Please return to the emergency department if you develop pain, redness, difficulty urinating or pain with urination or any other concerns. Please wear supportive underwear, use ibuprofen and Tylenol if needed for discomfort, and gently ice the scrotum to help with swelling. Please follow up with your primary care doctor within the next 2-3 days for ER follow-up. (If you do not have a PCP you can call [phone]. to schedule an appointment with an [facility] Primary Care Provider) IF YOU DEVELOP ANY NEW OR WORSENING SYMPTOMS, RETURN TO THE ER! Please read the attached instructions, they highlight more specific treatments and interventions for you at home. Thank you for letting me participate in your care, Makenna Wheeler PA-C Referrals: Phi Roche DO [Physician] - (large left hydrocele ) Ozzie Caba DO [Primary Care Provider] - Stand Alone Forms: Patient Portal/API/Survey ED Sign-out <Lucía Buckley DO - Last Filed: 12/11/24 03:23> Cosign ED Attending Cosignature Attestation: I was immediately available in the department for consultation. Case was discussed.
[2024-12-07 12:40] VITALS: BP 136/85; PULSE 65; RESP 16; O2SAT 94
== END 2024-12-07 12:40 | disposition home or self-care (01) ==
PROVIDERS: Emergency Provider Physician Assistant; PCP Family Medicine
DX: N43.3 Hydrocele, unspecified (principal)
CPT/HCPCS: 76870; 81003; 99281; 99283